=== PATIENT | female | born 1955 | race Caucasian/White ===

== ENCOUNTER 2019-12-09 06:32 | Emergency (ER) | payer OTHER ==
[2019-12-09 07:15] VITALS: BP 119/72; PULSE 72; TEMP 98.6; BMI 30.9
--- NOTE | 2019-12-09 07:34 | PDOC ---
History of Present Illness - General Chief Complaint: Pain Stated Complaint: LEFT LEG PAIN Time Seen by Provider: 12/09/19 07:34 History Source: Patient - History of Present Illness Initial Comments: 12/09/19 07:47 64F w/hx arthritis p/w worsening L knee pain, swelling. She reports cortisone L knee injection 5 days ago for arthritis pain. She has had previous joint space injections without complication previously and with rapid improvement of pain. She reports that over the last 3 days since the injection she has had worsening pain, mild swelling, and is now unable to bear weight on the L knee. She denies any fevers, chills, weakness, confusion, or redness over knee. She is prescribed meloxicam for arthritis, last dose yesterday. Past History - Medical History Allergies/Adverse Reactions: Allergies Allergy/AdvReac Type Severity Reaction Status Date / Time No Known Drug Allergies Allergy Verified 12/09/19 07:15 Home Medications: Ambulatory Orders Benzonatate [Tessalon Pearls -] 100 mg PO TID PRN #16 capsule 09/07/19 Ipratropium [place] 2 spray NS BID PRN #1 spray 09/07/19 COPD: No Other medical history: arthritis - Psycho-Social/Smoking History Smoking History: Never smoked Have you smoked in the past 12 months: No - Substance Abuse Hx (Audit-C & DAST Scrn) How often the patient has a drink containing alcohol: Never Score: In Men: 4 or > Positive; In Women: 3 or > Positive: 0 Screen Result (Pos requires Nsg. Audit-10AR): Negative Review of Systems - Review of Systems Able to Perform ROS?: Yes Comments:: 12/09/19 07:57 GENERAL/CONSTITUTIONAL: No fever or chills. No weakness. HEAD, EYES, EARS, NOSE AND THROAT: No change in vision. No ear pain or discharge. No sore throat. CARDIOVASCULAR: No chest pain or shortness of breath RESPIRATORY: No cough, wheezing, or hemoptysis. GASTROINTESTINAL: No nausea, vomiting, diarrhea or constipation. GENITOURINARY: No dysuria, frequency, or change in urination. MUSCULOSKELETAL: L knee pain, swelling. Unable to bear weight. No other joint or muscle swelling or pain. No neck or back pain. SKIN: No rash NEUROLOGIC: No headache, vertigo, loss of consciousness, or change in strength/sensation. ENDOCRINE: No increased thirst. No abnormal weight change HEMATOLOGIC/LYMPHATIC: No anemia, easy bleeding, or history of blood clots. ALLERGIC/IMMUNOLOGIC: No hives or skin allergy. *Physical Exam - Vital Signs Last Vital Signs Temp Pulse Resp BP Pulse Ox 98.6 F 72 18 119/72 99 12/09/19 07:11 12/09/19 07:11 12/09/19 07:11 12/09/19 07:11 12/09/19 07:11 - Physical Exam 12/09/19 07:57 GENERAL: Awake, alert, and fully oriented, in no acute distress HEAD: No signs of trauma, normocephalic, atraumatic EYES: PERRLA, EOMI, sclera anicteric, conjunctiva clear ENT: Auricles normal inspection, hearing grossly normal, nares patent, oropharynx clear without exudates. Moist mucosa NECK: Normal ROM, supple, no lymphadenopathy, JVD, or masses LUNGS: No distress, speaks full sentences, clear to auscultation bilaterally HEART: Regular rate and rhythm, normal S1 and S2, no murmurs, rubs or gallops, peripheral pulses normal and equal bilaterally. ABDOMEN: Soft, nontender, normoactive bowel sounds. No guarding, no rebound. No masses EXTREMITIES : L knee mild swelling compared to R, range of motion limited by pain. No overlying cellulitis or redness. Otherwise Normal inspection, no edema. No clubbing or cyanosis NEUROLOGICAL: Cranial nerves II through XII grossly intact. Normal speech, no focal sensorimotor deficits SKIN: Warm, Dry, normal turgor, no rashes or lesions noted Medical Decision Making - Medical Decision Making 12/09/19 07:58 64F w/hx arthritis, recent joint space injection p/w L knee swelling, pain, difficulty bearing weight, likely representing joint effusion. Septic joint unlikely without chills, fever, or redness/warmth over joint. Plan: Joint aspiration Synovial fluid culture, cell counts Dispo: Discharge Discharge - Discharge Information Problems reviewed: Yes Clinical Impression/Diagnosis: Joint effusion of knee Qualifiers: Laterality: left Qualified Code(s): M25.462 - Effusion, left knee Condition: Stable Disposition: HOME - Admission No - Follow up/Referral Referrals: Singh Huang MD [Primary Care Provider] - - Patient Discharge Instructions Patient Printed Discharge Instructions: DI for Knee Effusion Additional Instructions: You were seen in the ER for knee pain. There was an effusion in the joint - fluid buildup that causes pain and swelling. We removed 50cc of fluid from the knee. Analysis of the fluid did not show signs of infection. Please control the pain with meloxicam as prescribed. Followup with your primary care provider as soon as possible, in the next 2-3 days. - Post Discharge Activity
[2019-12-09] MEDS ORDERED: LIDOCAINE 1%/EPI 1:100000 (20 ML MULTI DOSE VIAL) ONE (07:52)
--- NOTE | 2019-12-09 09:03 | PDOC ---
Attending Attestation - Resident Resident Name: Vik Worthington - ED Attending Attestation I have performed the following: I have examined & evaluated the patient, The case was reviewed & discussed with the resident, I agree w/resident's findings & plan, Exceptions are as noted - HPI HPI: 12/09/19 09:01 64 F with h/o OA presents to ED with L knee swelling and pain. Pt was seen by ortho 5 days ago and had cortisone injection into same knee. Since then, she has had warmth and swelling around the knee, with pain with ranging and weight bearing. Pt denies F/C. Has had injections in the knee previously without this reaction. - Physicial Exam PE: 12/09/19 09:02 See resident exam - Medical Decision Making 12/09/19 09:02 64 F with L knee swelling and pain. Will need to r/o septic arthritis given recent instrumentation of knee. - L knee arthrocentesis performed 12/09/19 10:58 synovial fluid with approx [id number] WBCs Crystal analysis positive but to be confirmed by pathologist Suspect pseudogout Will DC with ortho f/u Pt is well appearing, with normal vitals. Clinically stable for DC at this time. I discussed the physical exam findings, ancillary test results and final diagnoses with the patient. I answered all of the patient's questions. The patient was satisfied with the care received and felt comfortable with the discharge plan and treatment plan. The patient agrees to follow up with the primary care physician within 24-72 hours. Please note this patient was evaluated during the COVID-19 crisis with the presidential [place] Act Declaration and the [place] governia executive order number 202. He/she was evaluated and clinical decisions were made relative to healthcare system resources as well as clinical picture during a pandemic crisis situation. Discharge - Discharge Information Problems reviewed: Yes Clinical Impression/Diagnosis: Knee pain, Pseudogout Joint effusion of knee Qualifiers: Laterality: left Qualified Code(s): M25.462 - Effusion, left knee Condition: Stable Disposition: HOME - Follow up/Referral Referrals: Singh Huang MD [Primary Care Provider] - - Patient Discharge Instructions Patient Printed Discharge Instructions: DI for Knee Effusion Additional Instructions: You were seen in the ER for knee pain. There was an effusion in the joint - fluid buildup that causes pain and swelling. We removed 50cc of fluid from the knee. Analysis of the fluid did not show signs of infection. Please control the pain with meloxicam as prescribed. Followup with your primary care provider as soon as possible, in the next 2-3 days. - Post Discharge Activity
[2019-12-10 11:29] LABS: CRYSTALS,SYNOVIAL FLUID CPPD
== END 2019-12-09 11:55 | disposition home or self-care (01) ==
LOC: JER 06:32
DX: M25.462 Effusion, left knee (principal)
CPT/HCPCS: 87070; 87075; 87205; 89060; 99284-25

== ENCOUNTER 2020-05-12 09:37 | Emergency (ER) | payer OTHER, BC ==
[2020-05-12 09:52] VITALS: BP 133/76; PULSE 88; TEMP 97.8; BMI 31.0
== END 2020-05-12 11:03 | disposition home or self-care (01) ==
LOC: JERFT 09:37
PROC: 0H9AXZZ Drainage of Inguinal Skin, External Approach (ICD-10-PCS; principal; 2020-05-12)
DX: L02.11 Cutaneous abscess of neck (principal)
CPT/HCPCS: 87070; 87186; 87205; 99282-25

== ENCOUNTER 2020-05-27 13:04 | Inpatient (IN) | payer BC, OTHER ==
[2020-05-27] MEDS ORDERED: DEXAMETHASONE SOD PHOSPHATE 10 MG/1 ML VIAL IVPUSH ONE (13:15)
[2020-05-27] MEDS ORDERED: DEXAMETHASONE SOD PHOSPHATE 4 MG/1 ML VIAL IVPUSH ONE (13:27)
[2020-05-27] MEDS ORDERED: AZITHROMYCIN IVPB 500 MG in DEXTROSE 5%-WATER - 250 ML IVPB ONE (13:32)
[2020-05-27] MEDS ORDERED: CEFTRIAXONE 1,000 MG in DEXTROSE 5%-WATER - 50 ML IVPB ONE (13:32)
[2020-05-27] MEDS ORDERED: DEXAMETHASONE SOD PHOSPHATE 4 MG/1 ML VIAL ONE (14:00)
[2020-05-27] MEDS ORDERED: CEFTRIAXONE 1 GM/50 ML BAG ONE (14:00)
[2020-05-27] MEDS ORDERED: AZITHROMYCIN IVPB 500 MG/250 ML BAG IVPB ONE (14:01)
[2020-05-27 14:07] LABS: BASO % 0.3 % (0-2.0); EOS % 0.6 % (0-4.5); HEMATOCRIT 40.5 % (32.4-45.2); HEMOGLOBIN 13.8 GM/dL (10.7-15.3); LYMPH % 16.8 % (8-40); MCH 30.5 pg (25.7-33.7); MCHC 34.2 g/dl (32.0-36.0); MEAN CELL VOLUME 89.2 fl (80-96); MEAN PLT VOLUME 8.7 fl (7.5-11.1); MONO % 9.5 % (3.8-10.2); NEUT % 72.8 % (42.8-82.8); PLATELET COUNT 311 K/MM3 (134-434); RBC 4.53 M/mm3 (3.60-5.2); RDW 13.8 % (11.6-15.6); WHITE BLOOD COUNT 5.5 K/mm3 (4.0-10.0)
[2020-05-27] MEDS ORDERED: ACETAMINOPHEN 325 MG TABLET (FP) PO ONE (14:07)
[2020-05-27 14:13] LABS: INR 1.13 (0.83-1.09); PROTHROMBIN TIME (PATIENT) 13.8 SEC (9.7-13.0)
[2020-05-27 14:21] LABS: VENOUS BASE EXCESS -1.1 mmol/L (-2-2); VENOUS O2 SATURATION 28.4 % (70-80); VENOUS PCO2 39.1 mmHg (38-52); VENOUS PH 7.397 (7.310-7.410)
[2020-05-27 14:22] LABS: CHLORIDE 104 mmol/L (98-107); SODIUM 137 mmol/L (136-145)
[2020-05-27 14:24] LABS: CALCIUM 8.8 mg/dL (8.5-10.1); GLUCOSE,RANDOM 93 mg/dL (74-106)
[2020-05-27 14:25] LABS: ALBUMIN 3.2 g/dl (3.4-5.0); ANION GAP 6 MMOL/L (8-16); BLOOD UREA NITROGEN 16.2 mg/dL (7-18); CO2 28 mmol/L (21-32)
[2020-05-27 14:27] LABS: SGPT/ALT 43 U/L (13-61)
[2020-05-27 14:29] LABS: BILIRUBIN,TOTAL 0.5 mg/dL (0.2-1); CREATININE 0.8 mg/dL (0.55-1.3); SGOT/AST 38 U/L (15-37)
[2020-05-27] MEDS ORDERED: ACETAMINOPHEN 325 MG TABLET (FP) ONE (14:29)
[2020-05-27 14:30] LABS: ALK PHOS 59 U/L (45-117)
[2020-05-27 14:31] LABS: LDH 314 U/L (84-246)
[2020-05-27] MEDS ORDERED: CHOLECALCIFEROL (VIT D3) 1,000 UNIT (25 MCG) TABLET ONE (16:24)
[2020-05-27] MEDS: CHOLECALCIFEROL (VIT D3) 1,000 UNIT (25 MCG) TABLET PO SCH (16:36)
[2020-05-27] MEDS ORDERED: ASCORBIC ACID 500 MG TABLET (FP) PO SCH (22:00)
[2020-05-27] MEDS ORDERED: ZINC SULFATE 220 MG CAPSULE (FP) ONE (22:12)
[2020-05-27] MEDS ORDERED: HEPARIN NA (PORCINE) 5,000 UNITS/ML 1ML VIAL ONE (22:12)
[2020-05-27] MEDS ORDERED: ASCORBIC ACID 500 MG TABLET (FP) ONE (22:12)
[2020-05-27] MEDS: HEPARIN NA (PORCINE) 5,000 UNITS/ML 1ML VIAL SQ SCH (22:17)
[2020-05-27] MEDS: ZINC SULFATE 220 MG CAPSULE (FP) PO SCH (22:18)
[2020-05-28 01:12] VITALS: BMI 31.8
[2020-05-28] MEDS: HEPARIN NA (PORCINE) 5,000 UNITS/ML 1ML VIAL SQ SCH ×2 (06:00→14:53)
[2020-05-28 08:02] LABS: BASO % 0.6 % (0-2.0); EOS % 0.2 % (0-4.5); HEMATOCRIT 39.4 % (32.4-45.2); HEMOGLOBIN 13.5 GM/dL (10.7-15.3); LYMPH % 22.6 % (8-40); MCH 30.8 pg (25.7-33.7); MCHC 34.3 g/dl (32.0-36.0); MEAN CELL VOLUME 89.6 fl (80-96); MEAN PLT VOLUME 8.8 fl (7.5-11.1); MONO % 13.2 % (3.8-10.2); NEUT % 63.4 % (42.8-82.8); PLATELET COUNT 308 K/MM3 (134-434); RDW 13.6 % (11.6-15.6); WHITE BLOOD COUNT 3.8 K/mm3 (4.0-10.0)
[2020-05-28] MEDS ORDERED: ASCORBIC ACID 500 MG TABLET (FP) PO SCH (08:10)
[2020-05-28 08:23] LABS: ACTIVATED PTT 30.4 SECONDS (25.2-36.5)
[2020-05-28 08:24] LABS: CALCIUM 8.7 mg/dL (8.5-10.1); INR 1.04 (0.83-1.09); PROTHROMBIN TIME (PATIENT) 12.6 SEC (9.7-13.0)
[2020-05-28 08:25] LABS: ALBUMIN 2.8 g/dl (3.4-5.0); BLOOD UREA NITROGEN 19.2 mg/dL (7-18); MAGNESIUM 2.3 mg/dL (1.8-2.4)
[2020-05-28 08:27] LABS: PHOSPHOROUS 3.8 mg/dL (2.5-4.9)
[2020-05-28 08:28] LABS: CREATININE 0.7 mg/dL (0.55-1.3)
[2020-05-28 08:30] LABS: BILIRUBIN,TOTAL 0.5 mg/dL (0.2-1); TOT PROT 6.7 g/dl (6.4-8.2)
[2020-05-28] MEDS ORDERED: DEXTROSE 5%-WATER - 50 ML IVPB ONE (09:07)
[2020-05-28] MEDS ORDERED: cefTRIAXone SODIUM 1 GM VIAL ONE (09:07)
[2020-05-28] MEDS: CHOLECALCIFEROL (VIT D3) 1,000 UNIT (25 MCG) TABLET PO SCH (10:00)
[2020-05-28] MEDS: DEXAMETHASONE SOD PHOSPHATE 4 MG/1 ML VIAL IVPUSH SCH (10:00)
[2020-05-28] MEDS: ZINC SULFATE 220 MG CAPSULE (FP) PO SCH ×2 (10:00→21:33)
[2020-05-28] MEDS: ASCORBIC ACID 500 MG TABLET (FP) PO SCH ×3 (10:01→21:33)
[2020-05-28] MEDS: CEFTRIAXONE 1 GM in DEXTROSE 5%-WATER - 50 ML IVPB SCH (10:01)
[2020-05-28] MEDS: AZITHROMYCIN IVPB 500 MG/250 ML BAG IVPB SCH (10:02)
[2020-05-28] MEDS ORDERED: PT OWN MED DRAWER 7, Y5N ONE (12:05)
[2020-05-28] MEDS: APIXABAN 5 MG TABLET PO SCH (21:33)
[2020-05-29 08:57] LABS: HEMATOCRIT 39.7 % (32.4-45.2); HEMOGLOBIN 13.5 GM/dL (10.7-15.3); MCH 30.1 pg (25.7-33.7); MEAN CELL VOLUME 88.7 fl (80-96); MEAN PLT VOLUME 8.3 fl (7.5-11.1); PLATELET COUNT 354 K/MM3 (134-434); RBC 4.48 M/mm3 (3.60-5.2); RDW 13.6 % (11.6-15.6); WHITE BLOOD COUNT 5.8 K/mm3 (4.0-10.0)
[2020-05-29] MEDS ORDERED: DEXTROSE 5%-WATER - 50 ML IVPB ONE (09:02)
[2020-05-29] MEDS ORDERED: cefTRIAXone SODIUM 1 GM VIAL ONE (09:02)
[2020-05-29 09:15] LABS: CALCIUM 8.9 mg/dL (8.5-10.1)
[2020-05-29 09:16] LABS: ALBUMIN 2.7 g/dl (3.4-5.0); BLOOD UREA NITROGEN 25.5 mg/dL (7-18)
[2020-05-29 09:19] LABS: CREATININE 0.7 mg/dL (0.55-1.3)
[2020-05-29 09:20] LABS: BILIRUBIN,TOTAL 0.5 mg/dL (0.2-1); TOT PROT 6.6 g/dl (6.4-8.2)
[2020-05-29] MEDS: ZINC SULFATE 220 MG CAPSULE (FP) PO SCH ×2 (10:01→21:14)
[2020-05-29] MEDS: FAMOTIDINE 20 MG TABLET PO SCH (10:01)
[2020-05-29] MEDS: CHOLECALCIFEROL (VIT D3) 1,000 UNIT (25 MCG) TABLET PO SCH (10:01)
[2020-05-29] MEDS: APIXABAN 5 MG TABLET PO SCH ×2 (10:01→21:14)
[2020-05-29] MEDS: ASCORBIC ACID 500 MG TABLET (FP) PO SCH ×2 (10:01→21:14)
[2020-05-29] MEDS: DEXAMETHASONE SOD PHOSPHATE 4 MG/1 ML VIAL IVPUSH SCH (10:02)
[2020-05-29] MEDS: CEFTRIAXONE 1 GM in DEXTROSE 5%-WATER - 50 ML IVPB SCH (10:03)
[2020-05-29] MEDS: AZITHROMYCIN IVPB 500 MG/250 ML BAG IVPB SCH (11:49)
[2020-05-29 12:38] LABS: ERYTHROCYTE SEDIMENTATION RATE 70 mm/hr (0-30)
[2020-05-29] MEDS ORDERED: REMDESIVIR 200 MG in SODIUM CHLORIDE 210 ML IVPB ONE (13:00)
[2020-05-29] MEDS ORDERED: PT OWN MED DRAWER 7, Y5N ONE (20:54)
[2020-05-30] MEDS: CHOLECALCIFEROL (VIT D3) 1,000 UNIT (25 MCG) TABLET PO SCH (10:09)
[2020-05-30] MEDS: ASCORBIC ACID 500 MG TABLET (FP) PO SCH ×2 (10:09→21:28)
[2020-05-30] MEDS: APIXABAN 5 MG TABLET PO SCH ×2 (10:09→21:28)
[2020-05-30] MEDS: FAMOTIDINE 20 MG TABLET PO SCH (10:09)
[2020-05-30] MEDS: ZINC SULFATE 220 MG CAPSULE (FP) PO SCH ×2 (10:09→21:28)
[2020-05-30] MEDS ORDERED: cefTRIAXone SODIUM 1 GM VIAL ONE (10:18)
[2020-05-30] MEDS ORDERED: DEXTROSE 5%-WATER - 50 ML IVPB ONE (10:19)
[2020-05-30] MEDS: DEXAMETHASONE SOD PHOSPHATE 4 MG/1 ML VIAL IVPUSH SCH (10:24)
[2020-05-30] MEDS: CEFTRIAXONE 1 GM in DEXTROSE 5%-WATER - 50 ML IVPB SCH (10:24)
[2020-05-30 10:27] LABS: HEMOGLOBIN 13.4 GM/dL (10.7-15.3); MCH 30.8 pg (25.7-33.7); MCHC 34.5 g/dl (32.0-36.0); MEAN CELL VOLUME 89.2 fl (80-96); MEAN PLT VOLUME 8.3 fl (7.5-11.1); PLATELET COUNT 339 K/MM3 (134-434); RBC 4.37 M/mm3 (3.60-5.2); RDW 13.4 % (11.6-15.6); WHITE BLOOD COUNT 5.5 K/mm3 (4.0-10.0)
[2020-05-30 10:52] LABS: CALCIUM 9.1 mg/dL (8.5-10.1)
[2020-05-30 10:54] LABS: BILIRUBIN,TOTAL 0.4 mg/dL (0.2-1); TOT PROT 6.7 g/dl (6.4-8.2)
[2020-05-30 10:56] LABS: CREATININE 0.8 mg/dL (0.55-1.3)
[2020-05-30 11:21] LABS: ERYTHROCYTE SEDIMENTATION RATE 54 mm/hr (0-30)
[2020-05-30] MEDS: AZITHROMYCIN IVPB 500 MG/250 ML BAG IVPB SCH (11:31)
[2020-05-30] MEDS: REMDESIVIR 100 MG in SODIUM CHLORIDE 230 ML IVPB SCH (14:23)
[2020-05-31 08:44] LABS: HEMATOCRIT 41.3 % (32.4-45.2); HEMOGLOBIN 14.2 GM/dL (10.7-15.3); MCH 30.5 pg (25.7-33.7); MCHC 34.3 g/dl (32.0-36.0); MEAN PLT VOLUME 8.4 fl (7.5-11.1); PLATELET COUNT 392 K/MM3 (134-434); RBC 4.64 M/mm3 (3.60-5.2); RDW 13.4 % (11.6-15.6); WHITE BLOOD COUNT 5.9 K/mm3 (4.0-10.0)
[2020-05-31 09:09] LABS: BLOOD UREA NITROGEN 27.2 mg/dL (7-18)
[2020-05-31 09:11] LABS: CALCIUM 9.1 mg/dL (8.5-10.1)
[2020-05-31 09:12] LABS: ALBUMIN 3.1 g/dl (3.4-5.0)
[2020-05-31 09:13] LABS: CREATININE 0.8 mg/dL (0.55-1.3)
[2020-05-31 09:14] LABS: BILIRUBIN,TOTAL 0.4 mg/dL (0.2-1); TOT PROT 6.8 g/dl (6.4-8.2)
[2020-05-31] MEDS ORDERED: cefTRIAXone SODIUM 1 GM VIAL ONE (09:33)
[2020-05-31] MEDS ORDERED: DEXTROSE 5%-WATER - 50 ML IVPB ONE (09:33)
[2020-05-31] MEDS: FAMOTIDINE 20 MG TABLET PO SCH (09:44)
[2020-05-31] MEDS: CHOLECALCIFEROL (VIT D3) 1,000 UNIT (25 MCG) TABLET PO SCH (09:44)
[2020-05-31] MEDS: APIXABAN 5 MG TABLET PO SCH ×2 (09:45→21:06)
[2020-05-31] MEDS: ZINC SULFATE 220 MG CAPSULE (FP) PO SCH ×2 (09:45→21:06)
[2020-05-31] MEDS: ASCORBIC ACID 500 MG TABLET (FP) PO SCH ×2 (09:45→21:06)
[2020-05-31] MEDS: DEXAMETHASONE SOD PHOSPHATE 4 MG/1 ML VIAL IVPUSH SCH (09:45)
[2020-05-31] MEDS: REMDESIVIR 100 MG in SODIUM CHLORIDE 230 ML IVPB SCH (10:43)
[2020-06-01] MEDS: ASCORBIC ACID 500 MG TABLET (FP) PO SCH ×3 (08:58→21:11)
[2020-06-01] MEDS: APIXABAN 5 MG TABLET PO SCH ×3 (08:58→21:11)
[2020-06-01] MEDS: FAMOTIDINE 20 MG TABLET PO SCH (08:59)
[2020-06-01] MEDS: DEXAMETHASONE SOD PHOSPHATE 4 MG/1 ML VIAL IVPUSH SCH (08:59)
[2020-06-01] MEDS: CHOLECALCIFEROL (VIT D3) 1,000 UNIT (25 MCG) TABLET PO SCH (08:59)
[2020-06-01] MEDS: ZINC SULFATE 220 MG CAPSULE (FP) PO SCH ×2 (08:59→21:11)
[2020-06-01] MEDS: REMDESIVIR 100 MG in SODIUM CHLORIDE 230 ML IVPB SCH (10:18)
[2020-06-02 08:47] LABS: ALBUMIN 3.1 g/dl (3.4-5.0); BLOOD UREA NITROGEN 27.5 mg/dL (7-18)
[2020-06-02 08:51] LABS: CREATININE 0.8 mg/dL (0.55-1.3)
[2020-06-02 08:52] LABS: BILIRUBIN,TOTAL 0.6 mg/dL (0.2-1); TOT PROT 6.6 g/dl (6.4-8.2)
[2020-06-02] MEDS: APIXABAN 5 MG TABLET PO SCH (09:41)
[2020-06-02] MEDS: ASCORBIC ACID 500 MG TABLET (FP) PO SCH (09:41)
[2020-06-02] MEDS: FAMOTIDINE 20 MG TABLET PO SCH (09:41)
[2020-06-02] MEDS: CHOLECALCIFEROL (VIT D3) 1,000 UNIT (25 MCG) TABLET PO SCH (09:41)
[2020-06-02] MEDS: ZINC SULFATE 220 MG CAPSULE (FP) PO SCH (09:41)
[2020-06-02] MEDS: DEXAMETHASONE SOD PHOSPHATE 4 MG/1 ML VIAL IVPUSH SCH (09:46)
[2020-06-02] MEDS: REMDESIVIR 100 MG in SODIUM CHLORIDE 230 ML IVPB SCH (13:07)
[2020-06-02 17:24] VITALS: BP 111/68; PULSE 78; TEMP 98.9
== END 2020-06-02 17:39 | disposition home or self-care (01) | DRG 177 ==
LOC: JER 13:04 → JERBED 15:21 → J8W 05-28 00:10
PROVIDERS: ADMIT Internal Medicine; ATTEND Internal Medicine
PROC: XW13325 Transfusion of Convalescent Plasma (Nonautologous) into Peripheral Vein, Percutaneous Approach, New Technology Group 5 (ICD-10-PCS; principal; 2020-05-29)
PROC: XW033E5 Introduction of Remdesivir Anti-infective into Peripheral Vein, Percutaneous Approach, New Technology Group 5 (ICD-10-PCS; 2020-05-29)
DX: U07.1 COVID-19 (principal); J96.01 Acute respiratory failure with hypoxia; J12.89 Other viral pneumonia
CPT/HCPCS: 36415; 36430; 71045-TC-FY; 80053; 82728; 82803; 83615; 83735; 83880; 84100; 84484; 85025; 85027; 85379; 85610; 85651; 85730; 86140; 86850; 86900; 86901; 87040; 87804; 87899; 93005; 93010; 94761; 97116-GP; 97161-GP; 99291; C9399; C9803; J1644; P9017; U0003

== ENCOUNTER 2021-10-08 15:26 | Emergency (ER) | payer BC, OTHER ==
[2021-10-08 15:39] VITALS: BP 130/82; PULSE 86; TEMP 98.1; BMI 33.2
[2021-10-08] MEDS ORDERED: KETOROLAC TROMETHAMINE 30 MG/1 ML VIAL IM ONE (16:31)
[2021-10-08] MEDS ORDERED: KETOROLAC TROMETHAMINE 30 MG/1 ML VIAL ONE (16:48)
== END 2021-10-08 21:02 | disposition home or self-care (01) ==
LOC: JERFT 15:26
PROC: 3E0233Z Introduction of Anti-inflammatory into Muscle, Percutaneous Approach (ICD-10-PCS; principal; 2021-10-08)
DX: M25.561 Pain in right knee (principal)
CPT/HCPCS: 73562-TC-RT-FY; 93971-TC; 99284-25

== ENCOUNTER 2022-01-26 18:54 | Emergency (ER) | payer BC ==
[2022-01-26 19:01] VITALS: BP 114/72; PULSE 80; RESP 20; TEMP 98.6; BMI 25.4
[2022-01-26] MEDS ORDERED: traMADol HCL 50 MG TABLET PO ONE (21:25)
[2022-01-26] MEDS ORDERED: traMADol HCL 50 MG TABLET ONE (21:39)
[2022-01-26] MEDS ORDERED: KETOROLAC TROMETHAMINE 30 MG/1 ML VIAL IM ONE (21:39)
[2022-01-26] MEDS ORDERED: KETOROLAC TROMETHAMINE 30 MG/1 ML VIAL ONE (21:39)
== END 2022-01-26 23:08 | disposition home or self-care (01) ==
LOC: JERFT 18:54 → JER 18:54 → JERFT 23:08
PROC: 3E0233Z Introduction of Anti-inflammatory into Muscle, Percutaneous Approach (ICD-10-PCS; principal; 2022-01-26)
DX: M17.12 Unilateral primary osteoarthritis, left knee (principal)
CPT/HCPCS: 73562-TC-LT-FY; 99284-25

== ENCOUNTER 2022-05-01 22:43 | Inpatient (IN) | payer BC ==
[2022-05-01 22:49] VITALS: BMI 29.2
[2022-05-02 00:31] LABS: BASO % 0.3 % (0-2.0); HEMATOCRIT 34.7 % (32.4-45.2); HEMOGLOBIN 11.4 GM/dL (10.7-15.3); LYMPH % 9.1 % (8-40); MCH 28.5 pg (25.7-33.7); MCHC 32.8 g/dl (32.0-36.0); MEAN CELL VOLUME 86.9 fl (80-96); MEAN PLT VOLUME 8.9 fl (7.5-11.1); MONO % 9.3 % (3.8-10.2); NEUT % 81.3 % (42.8-82.8); PLATELET COUNT 201 10^3/uL (134-434); RDW 14.8 % (11.6-15.6); WHITE BLOOD COUNT 10.6 K/mm3 (4.0-10.0)
[2022-05-02 00:53] LABS: CALCIUM 8.9 mg/dL (8.5-10.1)
[2022-05-02 00:54] LABS: ALBUMIN 2.6 g/dl (3.4-5.0)
[2022-05-02 00:57] LABS: CREATININE 1.6 mg/dL (0.55-1.3); PHOSPHOROUS 2.5 mg/dL (2.5-4.9)
[2022-05-02 00:59] LABS: BILIRUBIN,TOTAL 0.4 mg/dL (0.2-1)
[2022-05-02] MEDS ORDERED: ACETAMINOPHEN INJECTION 100 ML IVPB ONE ×2 (02:05→06:56)
[2022-05-02] MEDS ORDERED: SODIUM CHLORIDE 1,000 ML IV STA (02:32)
[2022-05-02] MEDS ORDERED: ACETAMINOPHEN 325 MG TABLET (FP) PO PRN ×2 (03:23→08:53)
[2022-05-02] MEDS ORDERED: ONDANSETRON 4 MG/2 ML VIAL IVPUSH PRN ×3 (03:25→09:44)
[2022-05-02] MEDS ORDERED: TAMSULOSIN HCL 0.4 MG CAP PO ONE (03:26)
[2022-05-02] MEDS ORDERED: SODIUM CHLORIDE 1,000 ML IV SCH (03:30)
[2022-05-02] MEDS ORDERED: AZITHROMYCIN IVPB 500 MG in DEXTROSE 5%-WATER - 250 ML IVPB ONE (04:01)
[2022-05-02] MEDS ORDERED: CEFTRIAXONE 1 GM in DEXTROSE 5%-WATER - 50 ML IVPB ONE (04:01)
[2022-05-02] MEDS ORDERED: TAMSULOSIN HCL 0.4 MG CAP ONE (04:18)
[2022-05-02] MEDS ORDERED: AZITHROMYCIN IVPB 500 MG/250 ML BAG IVPB ONE (04:18)
[2022-05-02] MEDS ORDERED: CEFTRIAXONE 1 GM/50 ML BAG ONE (04:18)
[2022-05-02 04:50] LABS: EPI CELLS 8 /uL (0-25.1); HYALINE CASTS 1 /uL (0-3.1); URINE APPEARANCE TURBID; URINE BACTERIA >9,000 /uL (0-1359); URINE BILIRUBIN NEGATIVE (NEGATIVE); URINE COLOR YELLOW; URINE GLUCOSE (UA) NEGATIVE (NEGATIVE); URINE KETONE NEGATIVE (NEGATIVE); URINE LEUK ESTERASE 3+ (NEGATIVE); URINE NITRITE POSITIVE (NEGATIVE); URINE PROTEIN 2+ (NEGATIVE); URINE RBC 46 /uL (0-23.9); URINE UROBILINOGEN 0.2 mg/dL (0.2-1.0); URINE WBC 4985 /uL (0-25.8)
[2022-05-02] MEDS ORDERED: HEPARIN NA (PORCINE) 5,000 UNITS/ML 1ML VIAL SQ SCH (06:00)
[2022-05-02 06:58] LABS: YEAST NONE SEEN (NEGATIVE)
[2022-05-02 07:38] LABS: ACTIVATED PTT 31.2 SECONDS (25.2-36.5); INR 1.18 (0.83-1.09); PROTHROMBIN TIME (PATIENT) 13.6 SEC (9.7-13.0)
[2022-05-02] MEDS ORDERED: MIDAZOLAM HCL 2 MG/2 ML SINGLE DOSE VIAL ONE (08:13)
[2022-05-02] MEDS ORDERED: PROPOFOL 20 ML ONE (08:13)
[2022-05-02] MEDS ORDERED: KETAMINE HCL 500 MG/10 ML VIAL ONE (08:13)
[2022-05-02] MEDS ORDERED: FENTANYL CITRATE/PF 50 MCG/ML VIAL ONE (08:13)
[2022-05-02] MEDS: SODIUM CHLORIDE 1,000 ML IV SCH (09:10)
[2022-05-02 10:35] LABS: HEMATOCRIT 33.4 % (32.4-45.2); MCH 28.6 pg (25.7-33.7); MEAN CELL VOLUME 86.5 fl (80-96); MEAN PLT VOLUME 8.8 fl (7.5-11.1); PLATELET COUNT 185 10^3/uL (134-434); RBC 3.86 M/mm3 (3.60-5.2); RDW 14.6 % (11.6-15.6); WHITE BLOOD COUNT 9.7 K/mm3 (4.0-10.0)
[2022-05-02 12:18] LABS: ALBUMIN 2.5 g/dl (3.4-5.0); BLOOD UREA NITROGEN 21.9 mg/dL (7-18); CALCIUM 8.5 mg/dL (8.5-10.1); MAGNESIUM 1.8 mg/dL (1.8-2.4)
[2022-05-02 12:21] LABS: CREATININE 1.3 mg/dL (0.55-1.3); PHOSPHOROUS 1.8 mg/dL (2.5-4.9)
[2022-05-02 12:22] LABS: TOT PROT 5.7 g/dl (6.4-8.2)
[2022-05-02 12:23] LABS: BILIRUBIN,TOTAL 0.6 mg/dL (0.2-1)
[2022-05-02] MEDS ORDERED: SODIUM PHOSPHATE - 30 MM in SODIUM CHLORIDE 250 ML IVPB ONE (14:30)
[2022-05-02] MEDS: HEPARIN NA (PORCINE) 5,000 UNITS/ML 1ML VIAL SQ SCH ×2 (14:42→21:44)
[2022-05-02] MEDS: LACTATED RINGERS SOLUTION 1,000 ML IV SCH (14:43)
[2022-05-02] MEDS ORDERED: ACETAMINOPHEN 1000 MG/100 ML BAG IVPB ONE (17:08)
[2022-05-03] MEDS: ACETAMINOPHEN 325 MG TABLET (FP) PO PRN ×3 (00:26→16:44)
[2022-05-03] MEDS ORDERED: CEFTRIAXONE 1 GM in DEXTROSE 5%-WATER - 50 ML IVPB SCH ×2 (04:30→10:00)
[2022-05-03] MEDS: HEPARIN NA (PORCINE) 5,000 UNITS/ML 1ML VIAL SQ SCH ×3 (06:46→21:57)
[2022-05-03] MEDS: SODIUM CHLORIDE 1,000 ML IV SCH (09:34)
[2022-05-03] MEDS ORDERED: PIPERACILLIN/TAZOB 3.375 GM 3.375 GM in DEXTROSE 5%-WATER - 50 ML IVPB SCH (10:00)
[2022-05-03 10:15] LABS: HEMATOCRIT 32.6 % (32.4-45.2); HEMOGLOBIN 10.7 GM/dL (10.7-15.3); MCH 28.6 pg (25.7-33.7); MCHC 32.8 g/dl (32.0-36.0); MEAN CELL VOLUME 87.2 fl (80-96); MEAN PLT VOLUME 8.8 fl (7.5-11.1); PLATELET COUNT 200 10^3/uL (134-434); RBC 3.74 M/mm3 (3.60-5.2); RDW 14.8 % (11.6-15.6)
[2022-05-03 10:52] LABS: BLOOD UREA NITROGEN 21.6 mg/dL (7-18)
[2022-05-03 10:54] LABS: CREATININE 1.1 mg/dL (0.55-1.3); PHOSPHOROUS 2.6 mg/dL (2.5-4.9)
[2022-05-03 10:57] LABS: CALCIUM 8.3 mg/dL (8.5-10.1)
[2022-05-03 10:58] LABS: MAGNESIUM 1.7 mg/dL (1.8-2.4)
[2022-05-03] MEDS ORDERED: MAGNESIUM SULF 50% (8.12 MEQ/2 ML-1 GM VIAL) IVPB ONE (12:48)
[2022-05-03] MEDS ORDERED: MAGNESIUM OXIDE 400 MG TABLET (FP) PO ONE (13:05)
[2022-05-03] MEDS ORDERED: DULoxetine HCL 20 MG CAPSULE.DR PO SCH (14:00)
[2022-05-03] MEDS: GABAPENTIN 300 MG CAPSULE PO SCH ×2 (14:25→21:57)
[2022-05-03] MEDS: LACTATED RINGERS SOLUTION 1,000 ML IV SCH (14:36)
[2022-05-03] MEDS: PIPERACILLIN/TAZOB 3.375 GM 3.375 GM in DEXTROSE 5%-WATER - 50 ML IVPB SCH ×2 (15:29→21:52)
[2022-05-03 21:51] VITALS: RESP 20
[2022-05-04] MEDS: ACETAMINOPHEN 325 MG TABLET (FP) PO PRN ×2 (00:32→15:13)
[2022-05-04] MEDS: PIPERACILLIN/TAZOB 3.375 GM 3.375 GM in DEXTROSE 5%-WATER - 50 ML IVPB SCH ×4 (03:13→19:19)
[2022-05-04] MEDS: HEPARIN NA (PORCINE) 5,000 UNITS/ML 1ML VIAL SQ SCH ×3 (05:45→21:49)
[2022-05-04] MEDS: GABAPENTIN 300 MG CAPSULE PO SCH ×3 (05:45→21:49)
[2022-05-04] MEDS: DULoxetine HCL 20 MG CAPSULE.DR PO SCH (09:32)
[2022-05-04] MEDS: LACTATED RINGERS SOLUTION 1,000 ML IV SCH (09:34)
[2022-05-04 10:41] LABS: HEMATOCRIT 32.9 % (32.4-45.2); MCH 28.9 pg (25.7-33.7); MCHC 33.6 g/dl (32.0-36.0); MEAN CELL VOLUME 86.3 fl (80-96); MEAN PLT VOLUME 8.5 fl (7.5-11.1); PLATELET COUNT 226 10^3/uL (134-434); RBC 3.81 M/mm3 (3.60-5.2); RDW 15.1 % (11.6-15.6); WHITE BLOOD COUNT 6.1 K/mm3 (4.0-10.0)
[2022-05-04 11:16] LABS: BLOOD UREA NITROGEN 17.6 mg/dL (7-18); CALCIUM 8.5 mg/dL (8.5-10.1); MAGNESIUM 2.2 mg/dL (1.8-2.4)
[2022-05-04 11:19] LABS: CREATININE 1.1 mg/dL (0.55-1.3); PHOSPHOROUS 2.5 mg/dL (2.5-4.9)
[2022-05-04] MEDS: CEFTRIAXONE 1 GM in DEXTROSE 5%-WATER - 50 ML IVPB SCH (13:59)
[2022-05-04] MEDS: DICLOFENAC SODIUM TP SCH ×2 (20:27→20:28)
[2022-05-05] MEDS: HEPARIN NA (PORCINE) 5,000 UNITS/ML 1ML VIAL SQ SCH ×3 (05:16→22:13)
[2022-05-05] MEDS: GABAPENTIN 300 MG CAPSULE PO SCH ×3 (05:17→22:13)
[2022-05-05] MEDS: CEFTRIAXONE 1 GM in DEXTROSE 5%-WATER - 50 ML IVPB SCH (09:08)
[2022-05-05] MEDS: DULoxetine HCL 20 MG CAPSULE.DR PO SCH (09:08)
[2022-05-05 10:16] LABS: HEMATOCRIT 35.6 % (32.4-45.2); HEMOGLOBIN 11.7 GM/dL (10.7-15.3); MCH 28.2 pg (25.7-33.7); MCHC 32.8 g/dl (32.0-36.0); MEAN PLT VOLUME 8.6 fl (7.5-11.1); PLATELET COUNT 279 10^3/uL (134-434); RBC 4.14 M/mm3 (3.60-5.2); WHITE BLOOD COUNT 6.5 K/mm3 (4.0-10.0)
[2022-05-05 10:29] LABS: BLOOD UREA NITROGEN 13.8 mg/dL (7-18); CALCIUM 8.9 mg/dL (8.5-10.1); MAGNESIUM 1.9 mg/dL (1.8-2.4)
[2022-05-05 10:32] LABS: CREATININE 0.9 mg/dL (0.55-1.3); PHOSPHOROUS 3.4 mg/dL (2.5-4.9)
[2022-05-06] MEDS: ACETAMINOPHEN 325 MG TABLET (FP) PO PRN (00:10)
[2022-05-06] MEDS: GABAPENTIN 300 MG CAPSULE PO SCH ×2 (05:26→14:14)
[2022-05-06] MEDS: HEPARIN NA (PORCINE) 5,000 UNITS/ML 1ML VIAL SQ SCH ×2 (05:27→14:15)
[2022-05-06] MEDS: CEFTRIAXONE 1 GM in DEXTROSE 5%-WATER - 50 ML IVPB SCH (09:16)
[2022-05-06] MEDS: DULoxetine HCL 20 MG CAPSULE.DR PO SCH (09:16)
[2022-05-06 11:13] LABS: HEMATOCRIT 33.4 % (32.4-45.2); HEMOGLOBIN 11.1 GM/dL (10.7-15.3); MCH 28.4 pg (25.7-33.7); MCHC 33.1 g/dl (32.0-36.0); MEAN CELL VOLUME 85.8 fl (80-96); MEAN PLT VOLUME 8.5 fl (7.5-11.1); PLATELET COUNT 284 10^3/uL (134-434); RBC 3.89 M/mm3 (3.60-5.2); RDW 14.8 % (11.6-15.6); WHITE BLOOD COUNT 6.6 K/mm3 (4.0-10.0)
[2022-05-06 11:28] LABS: CALCIUM 8.8 mg/dL (8.5-10.1)
[2022-05-06 11:29] LABS: BLOOD UREA NITROGEN 16.2 mg/dL (7-18); MAGNESIUM 1.7 mg/dL (1.8-2.4)
[2022-05-06 11:30] LABS: CREATININE 0.9 mg/dL (0.55-1.3); PHOSPHOROUS 3.2 mg/dL (2.5-4.9)
[2022-05-06] MEDS ORDERED: MAGNESIUM SULF 50% (8.12 MEQ/2 ML-1 GM VIAL) IVPB ONE (11:45)
[2022-05-06 15:52] VITALS: BP 115/67; PULSE 77; TEMP 99.3
== END 2022-05-06 18:31 | disposition home or self-care (01) | DRG 854 ==
LOC: JER 22:43 → JERBED 05-02 03:48 → J8W 05-02 05:55
PROVIDERS: ADMIT Internal Medicine; ATTEND Internal Medicine
PROC: 0T9380Z Drainage of Right Kidney Pelvis with Drainage Device, Via Natural or Artificial Opening Endoscopic (ICD-10-PCS; principal; 2022-05-02 08:00)
DX: A41.89 Other specified sepsis (principal); N12 Tubulo-interstitial nephritis, not specified as acute or chronic; N13.6 Pyonephrosis; N17.9 Acute kidney failure, unspecified; K80.20 Calculus of gallbladder without cholecystitis without obstruction; E83.42 Hypomagnesemia; D72.829 Elevated white blood cell count, unspecified
CPT/HCPCS: 0241U-QW; 36415; 71045-TC-FY; 76000-TC-FY; 76705-TC; 80048; 80053; 81003; 83690; 83735; 84100; 84484; 85025; 85027; 85610; 85730; 86850; 86900; 86901; 87040; 87086; 87186; 87324; 87449; 93005; 93010; 94760; 99285-25; C2617; C9803-CS; J1644; U0003; U0005

== ENCOUNTER 2022-05-26 04:17 | Day surgery (SDC) | payer BC ==
[2022-05-20 14:19] VITALS: BMI 29.8
[2022-05-26] MEDS ORDERED: FENTANYL CITRATE/PF 50 MCG/ML VIAL ONE ×2 (14:34→16:45)
[2022-05-26] MEDS ORDERED: ceFAZolin SODIUM 1 GM VIAL IVPB ONE ×2 (14:51→14:53)
[2022-05-26] MEDS ORDERED: ACETAMINOPHEN INJECTION 100 ML IVPB ONE (16:36)
[2022-05-26] MEDS ORDERED: ACETAMINOPHEN 1000 MG/100 ML BAG IVPB ONE (16:40)
[2022-05-26] MEDS: FENTANYL CITRATE/PF 50 MCG/ML VIAL IVPUSH PRN ×2 (16:45→16:50)
[2022-05-26 17:52] VITALS: TEMP 97.8
[2022-05-26 18:10] VITALS: BP 110/68; PULSE 72; RESP 20
== END 2022-05-26 17:53 | disposition home or self-care (01) ==
LOC: JASU-SURG 04:17
PROVIDERS: ATTEND Urology
PROC: 0T768DZ Dilation of Right Ureter with Intraluminal Device, Via Natural or Artificial Opening Endoscopic (ICD-10-PCS; 2022-05-26)
PROC: BT1DYZZ Fluoroscopy of Right Kidney, Ureter and Bladder using Other Contrast (ICD-10-PCS; 2022-05-26)
PROC: 0TC38ZZ Extirpation of Matter from Right Kidney Pelvis, Via Natural or Artificial Opening Endoscopic (ICD-10-PCS; principal; 2022-05-26 14:30)
DX: N20.0 Calculus of kidney (principal)
CPT/HCPCS: 76000-TC-FY; 94760; C2617

== ENCOUNTER 2022-06-29 04:07 | Day surgery (SDC) | payer OTHER ==
[2022-06-25 10:13] VITALS: BMI 29.2
[2022-06-29] MEDS ORDERED: SCOPOLAMINE HYDROBROMIDE 1 PATCH PATCH.TD72 ONE (08:43)
[2022-06-29] MEDS ORDERED: MIDAZOLAM HCL 2 MG/2 ML SINGLE DOSE VIAL ONE (09:38)
[2022-06-29] MEDS ORDERED: ceFAZolin SODIUM 1 GM VIAL IVPB ONE (09:45)
[2022-06-29] MEDS ORDERED: ONDANSETRON 4 MG/2 ML VIAL IVPUSH PRN (10:33)
[2022-06-29] MEDS ORDERED: oxyCODONE HCL 5 MG TABLET PO PRN (10:33)
[2022-06-29] MEDS ORDERED: PROMETHAZINE HCL 25 MG/1 ML VIAL IVPB PRN (10:33)
[2022-06-29] MEDS ORDERED: LACTATED RINGERS SOLUTION 1,000 ML IV SCH (10:45)
[2022-06-29] MEDS ORDERED: KETOROLAC TROMETHAMINE 30 MG/1 ML VIAL ONE (11:20)
[2022-06-29 11:39] VITALS: PULSE 61; RESP 18
[2022-06-29 12:12] VITALS: BP 135/77; TEMP 98
[2022-06-29] MEDS ORDERED: KETOROLAC TROMETHAMINE 30 MG/1 ML VIAL IVPUSH ONE (12:24)
== END 2022-06-29 12:15 | disposition home or self-care (01) ==
LOC: JASU-SURG 04:07
PROVIDERS: ATTEND Urology
PROC: 0TC68ZZ Extirpation of Matter from Right Ureter, Via Natural or Artificial Opening Endoscopic (ICD-10-PCS; principal; 2022-06-29 08:30)
PROC: 0T768DZ Dilation of Right Ureter with Intraluminal Device, Via Natural or Artificial Opening Endoscopic (ICD-10-PCS; 2022-06-29 08:30)
DX: N20.1 Calculus of ureter (principal)
CPT/HCPCS: 76000-TC-FY; 94760; C1747; C1769; C2617

== ENCOUNTER 2022-08-27 11:49 | Emergency (ER) | payer OTHER ==
[2022-08-27 12:06] VITALS: BMI 29.2
[2022-08-27 13:31] LABS: BASO % 0.8 % (0-2.0); EOS % 5.5 % (0-4.5); HEMATOCRIT 39.1 % (32.4-45.2); HEMOGLOBIN 13.5 GM/dL (10.7-15.3); LYMPH % 7.7 % (8-40); MCH 29.3 pg (25.7-33.7); MCHC 34.5 g/dl (32.0-36.0); MEAN PLT VOLUME 8.2 fl (7.5-11.1); MONO % 7.4 % (3.8-10.2); NEUT % 78.6 % (42.8-82.8); PLATELET COUNT 244 10^3/uL (134-434); RDW 15.8 % (11.6-15.6); WHITE BLOOD COUNT 7.4 K/mm3 (4.0-10.0)
[2022-08-27 13:33] LABS: PH,URINE 5.5 (5.0-8.0); URINE APPEARANCE CLEAR; URINE BILIRUBIN NEGATIVE (NEGATIVE); URINE COLOR YELLOW; URINE GLUCOSE (UA) NEGATIVE (NEGATIVE); URINE KETONE NEGATIVE (NEGATIVE); URINE LEUK ESTERASE NEGATIVE (NEGATIVE); URINE NITRITE NEGATIVE (NEGATIVE); URINE PROTEIN NEGATIVE (NEGATIVE); URINE UROBILINOGEN 0.2 mg/dL (0.2-1.0)
[2022-08-27 13:38] LABS: INR 1.07 (0.83-1.09); PROTHROMBIN TIME (PATIENT) 12.4 SEC (9.7-13.0)
[2022-08-27 13:40] LABS: ACTIVATED PTT 36.6 SECONDS (25.2-36.5)
[2022-08-27 13:44] LABS: BLOOD UREA NITROGEN 25.6 mg/dL (7-18)
[2022-08-27 13:45] LABS: ALBUMIN 3.6 g/dl (3.4-5.0); CALCIUM 9.6 mg/dL (8.5-10.1); MAGNESIUM 2.3 mg/dL (1.8-2.4)
[2022-08-27 13:48] LABS: CREATININE 1.1 mg/dL (0.55-1.3)
[2022-08-27 13:50] LABS: BILIRUBIN,TOTAL 0.3 mg/dL (0.2-1)
[2022-08-27] MEDS ORDERED: SODIUM CHLORIDE 0.9% 1000 ML INFUS.BAG IV ONE (14:33)
[2022-08-27 15:45] VITALS: BP 133/74; PULSE 99; RESP 18; TEMP 100.3
[2022-08-27] MEDS ORDERED: ACETAMINOPHEN 1000 MG/100 ML BAG IVPB ONE (17:13)
[2022-08-27] MEDS ORDERED: SODIUM CHLORIDE 0.9% 500 ML INFUS.BAG IV ONE (18:11)
[2022-08-27] MEDS ORDERED: ACETAMINOPHEN INJECTION 100 ML IVPB ONE (18:32)
== END 2022-08-27 19:03 | disposition home or self-care (01) ==
LOC: JER 11:49
PROC: 3E033NZ Introduction of Analgesics, Hypnotics, Sedatives into Peripheral Vein, Percutaneous Approach (ICD-10-PCS; principal; 2022-08-27)
DX: R50.9 Fever, unspecified (principal); R10.9 Unspecified abdominal pain; Z20.822 Contact with and (suspected) exposure to COVID-19
CPT/HCPCS: 0241U-QW; 36415; 71046-TC-FY; 74176-TC; 80053; 81003; 83605; 83735; 85025; 85610; 85730; 86850; 86900; 86901; 87040; 87086; 87186; 93005; 93010; 99285-25

== ENCOUNTER 2022-10-13 11:23 | Emergency (ER) | payer OTHER ==
[2022-10-13 11:44] VITALS: BP 114/65; PULSE 84; RESP 18; TEMP 98.6; BMI 30.2
[2022-10-13 13:35] LABS: EPI CELLS 31 /uL (0-25.1); HYALINE CASTS 2 /uL (0-3.1); PH,URINE 5.5 (5.0-8.0); URINE APPEARANCE CLEAR; URINE BACTERIA 921 /uL (0-1359); URINE BILIRUBIN NEGATIVE (NEGATIVE); URINE COLOR YELLOW; URINE GLUCOSE (UA) NEGATIVE (NEGATIVE); URINE KETONE TRACE (NEGATIVE); URINE LEUK ESTERASE 2+ (NEGATIVE); URINE NITRITE NEGATIVE (NEGATIVE); URINE PROTEIN TRACE (NEGATIVE); URINE RBC 25 /uL (0-23.9); URINE UROBILINOGEN 0.2 mg/dL (0.2-1.0); URINE WBC 144 /uL (0-25.8)
[2022-10-13 13:40] LABS: BASO % 0.5 % (0-2.0); EOS % 3.4 % (0-4.5); HEMATOCRIT 38.8 % (32.4-45.2); HEMOGLOBIN 13.3 GM/dL (10.7-15.3); LYMPH % 16.7 % (8-40); MCHC 34.1 g/dl (32.0-36.0); MEAN CELL VOLUME 85.1 fl (80-96); MEAN PLT VOLUME 7.7 fl (7.5-11.1); MONO % 10.2 % (3.8-10.2); NEUT % 69.2 % (42.8-82.8); PLATELET COUNT 262 10^3/uL (134-434); RBC 4.57 M/mm3 (3.60-5.2); RDW 15.1 % (11.6-15.6); WHITE BLOOD COUNT 7.7 K/mm3 (4.0-10.0)
[2022-10-13 13:57] LABS: POTASSIUM 4.2 mmol/L (3.5-5.1)
[2022-10-13 14:00] LABS: ALBUMIN 3.7 g/dl (3.4-5.0); BLOOD UREA NITROGEN 22.9 mg/dL (7-18); CALCIUM 9.8 mg/dL (8.5-10.1)
[2022-10-13 14:05] LABS: BILIRUBIN,TOTAL 0.6 mg/dL (0.2-1); TOT PROT 7.6 g/dl (6.4-8.2)
[2022-10-13] MEDS ORDERED: SODIUM CHLORIDE 0.9% 500 ML INFUS.BAG IV ONE (14:17)
[2022-10-13] MEDS ORDERED: CEFTRIAXONE 1 GM in DEXTROSE 5%-WATER - 100 ML IVPB ONE (14:17)
[2022-10-13] MEDS ORDERED: CEFTRIAXONE 1 GM/50 ML BAG ONE (14:22)
== END 2022-10-13 15:11 | disposition home or self-care (01) ==
LOC: JER 11:23 → JERFT 11:23
DX: M54.6 Pain in thoracic spine (principal); G89.29 Other chronic pain; R50.9 Fever, unspecified
CPT/HCPCS: 36415; 74176-TC; 80053; 81003; 85025; 87077; 87086; 99285-25